=== PATIENT | female | born 1985 | race Caucasian/White ===

== ENCOUNTER 2022-02-12 11:48 | Outpatient (CLI) | payer OTHER, SELFPAY ==
[2022-02-12 14:21] LABS: TSH With Reflex to FT4* 0.772 uIU/mL (0.270-4.200)
== END 2022-02-12 11:49 | disposition home or self-care (01) ==
PROVIDERS: PCP Family Medicine; Visit Provider Physician Assistant
DX: N92.0 Excessive and frequent menstruation with regular cycle (principal)
CPT/HCPCS: 84443